=== PATIENT | male | born 1965 | race Caucasian/White ===

== ENCOUNTER 2018-05-02 10:14 | Emergency (ER) | payer MEDICAID ==
[2018-05-02 10:31] VITALS: BP 149/92; PULSE 75; RESP 18; TEMP 98; O2SAT 98
--- NOTE | 2018-05-02 11:17 | C.PDOC ---
History Of Present Illness 53 y/o male with history of Right knee OA, Chronic right knee pain presents to ED requesting medication refill for Gabapentin. Patient denies recent trauma or injury, denies CP, SOB, cough, denies calf pian, swelling of knee, deformity, weakness, sensory or vascular deficits to Right leg. Ambulate to Ed for evaluation with stable gait, not in any apparent distress. Time Seen by Provider: 05/02/18 10:23 Chief Complaint (Nursing): Lower Extremity Problem/Injury History Per: Patient History/Exam Limitations: no limitations Onset/Duration Of Symptoms: Days Current Symptoms Are (Timing): Still Present Past Medical History Reviewed: Historical Data, Nursing Documentation, Vital Signs Vital Signs: Last Vital Signs Temp 98.0 F 05/02/18 10:26 Pulse 75 05/02/18 10:26 Resp 18 05/02/18 10:26 BP 149/92 H 05/02/18 10:26 Pulse Ox 98 05/02/18 11:29 - Medical History PMH: Anxiety, Arthritis, Depression Surgical History: No Surg Hx - [facility] Procedures DETOXIFICATION SERVICES FOR SUBSTANCE ABUSE TREATMENT (12/12/15) GROUP PSYCHOTHERAPY (08/28/15) MEDICATION MANAGEMENT (08/28/15) Family History: States: No Known Family Hx - Social History Hx Alcohol Use: No Hx Substance Use: No - Immunization History Hx Tetanus Toxoid Vaccination: Yes Hx Influenza Vaccination: Yes Hx Pneumococcal Vaccination: Yes Review Of Systems Constitutional: Negative for: Fever, Chills Musculoskeletal: Positive for: Leg Pain. Negative for: Back Pain, Foot Pain Skin: Negative for: Rash, Bruising Neurological: Negative for: Weakness, Numbness Physical Exam - Physical Exam Appears: Well, Non-toxic, No Acute Distress Skin: Normal Color, Warm, Dry, No Rash, No Ecchymosis Extremity: Normal ROM (of Right knee, no neurovascular deficits.), Tenderness ( mild tenderness to anterior aspect Right knee. No edema, no erythema, no warmth. ), No Pedal Edema, No Calf Tenderness, Capillary Refill (<2 seconds), No Deformity, No Swelling Neurological/Psych: Oriented x3, Normal Motor, Normal Sensation, Normal Reflexes ED Course And Treatment O2 Sat by Pulse Oximetry: 98 (RA) Pulse Ox Interpretation: Normal Progress Note: On re-evaluation, pt is afebrile, hemodynamicaly stable. Non- toxic, tolerate Po well in ED. AMbulatory in ED with stable gait. Right knee: FAROM, no neurovascular deficits, no evidence of cellulitis, no calf tenderness. Pt has clinical findings c/w Right knee OA, chr. knee pain request medication Gabapentin refill . Pt advised. ref. to f/u with Ortho in 2 days for re-eval. return if any worseningor new changes. Disposition Counseled Patient/Family Regarding: Diagnosis, Need For Followup, Rx Given - Disposition Referrals: [facility] [Outside] Disposition: HOME/ ROUTINE Disposition Time: 11:14 Condition: STABLE Additional Instructions: Take medication as prescribed Follow up with PMD, Orthopedist in 2-3 days for re-evaluation. return if any new changes. 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 - Scribe Statement The provider has reviewed the documentation as recorded by the Ziaibjuan david Echols All medical record entries made by the Alin were at my direction and personally dictated by me. I have reviewed the chart and agree that the record accurately reflects my personal performance of the history, physical exam, medical decision making, and the department course for this patient. I have also personally directed, reviewed, and agree with the discharge instructions and disposition.
== END 2018-05-02 11:36 | disposition home or self-care (01) ==
LOC: C.ER 10:14
DX: M25.561 Pain in right knee (principal)

== ENCOUNTER 2018-08-02 15:18 | Emergency (ER) | payer MEDICAID, OTHER ==
[2018-08-02 15:57] VITALS: BP 137/75; PULSE 80; RESP 18; TEMP 98.5; O2SAT 97
--- NOTE | 2018-08-02 16:49 | C.PDOC ---
History Of Present Illness 53 y/o male, w/PMhx of ETOH abuse, sciatica, and chronic knee pain, presents to the ER complaining of right sided back pain which has been present for the past 5 days. Patient states that the pain intermittently shoots down his right buttock into his right leg. Patient reports that the pain is worse with sitting for long periods of time. He [facility], but he has been running out of the medication. He also takes Ibuprofen 800 mg every 6 hours with some relief, his last dose was at 7 am today. Denies having bladder/bowel incontinence, saddle anasthesia, weakness, numbness, difficulty walking, fever, and chills. Chief Complaint (Nursing): Lower Extremity Problem/Injury History Per: Patient History/Exam Limitations: no limitations Onset/Duration Of Symptoms: Days Current Symptoms Are (Timing): Still Present Severity: Moderate Past Medical History Reviewed: Historical Data, Nursing Documentation, Vital Signs Vital Signs: Last Vital Signs Temp 98.5 F 08/02/18 15:53 Pulse 80 08/02/18 15:53 Resp 18 08/02/18 15:53 BP 137/75 08/02/18 15:53 Pulse Ox 97 08/02/18 15:53 - Medical History PMH: Anxiety, Arthritis, Depression Denies: Diabetes, Hepatitis, HIV, HTN, Chronic Kidney Disease, Seizures, Sexually Transmitted Disease Surgical History: No Surg Hx - [facility] Procedures DETOXIFICATION SERVICES FOR SUBSTANCE ABUSE TREATMENT (12/12/15) GROUP PSYCHOTHERAPY (08/28/15) MEDICATION MANAGEMENT (08/28/15) Family History: States: No Known Family Hx - Social History Hx Alcohol Use: No Hx Substance Use: No - Immunization History Hx Tetanus Toxoid Vaccination: Yes Hx Influenza Vaccination: Yes (1 week) Hx Pneumococcal Vaccination: No Review Of Systems Except As Marked, All Systems Reviewed And Found Negative. Constitutional: Negative for: Fever, Chills Cardiovascular: Negative for: Chest Pain, Palpitations Respiratory: Negative for: Cough, Shortness of Breath Gastrointestinal: Negative for: Nausea, Vomiting, Abdominal Pain, Diarrhea, Rectal Pain Genitourinary: Negative for: Incontinence Musculoskeletal: Positive for: Back Pain (right-sided back pain), Leg Pain (right leg). Negative for: Neck Pain, Shoulder Pain, Arm Pain, Hand Pain Skin: Negative for: Rash, Lesions, Bruising Neurological: Negative for: Weakness, Numbness, Headache, Dizziness Physical Exam - Physical Exam Appears: Non-toxic, No Acute Distress Skin: Normal Color, Warm, Dry Head: Atraumatic, Normacephalic Eye(s): bilateral: Normal Inspection Nose: Normal Oral Mucosa: Moist Tongue: Normal Appearing Lips: Normal Appearing Neck: Normal, Normal ROM, No Midline Cervical Tenderness, No Paracervical Tenderness, Supple Chest: Symmetrical Cardiovascular: Rhythm Regular Respiratory: Normal Breath Sounds, No Rales, No Rhonchi, No Wheezing Gastrointestinal/Abdominal: No Normal Exam, No Bowel Sounds Back: Normal Inspection, No Vertebral Tenderness, No Decreased ROM, Muscle Spasm (muscle spasm in right lumbar paraspinal region), Paraspinal Tenderness (left lumbar paraspinal), Straight Leg Raising (positive straight leg raise) Extremity: Normal ROM, No Tenderness, No Deformity, No Swelling Neurological/Psych: Oriented x3, Normal Speech, Normal Motor, Normal Sensation Gait: Steady ED Course And Treatment O2 Sat by Pulse Oximetry: 97 (RA) Pulse Ox Interpretation: Normal Medical Decision Making Medical Decision Making: Initial Plan: --Toradol IM --Flexeril PO Pt reassessed, reports decreased pain. Comfortable with discharge home. Impression: sciatica Plan: flexeril short term gabapentin refill ortho f/u PMD f/u within 2 days return if worse Disposition - Disposition Referrals: Kasandra Cuevas MD [Staff Provider] - Disposition: HOME/ ROUTINE Disposition Time: 17:13 Condition: IMPROVED Additional Instructions: Take ibuprofen as needed for pain Take gabapentin as prescribed Take flexeril 10mg every 8 hours as needed for pain Followup with orthopedic within 2 days Return to ED if symptoms worsen Prescriptions: Cyclobenzaprine [Flexeril] 10 mg PO Q8H PRN #15 tab PRN Reason: spasm Gabapentin [Neurontin] 300 mg PO TID #20 cap Instructions: Sciatica Forms: [facility] (Panamanian), Work Excuse - Clinical Impression Clinical Impression: Sciatica - 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 - Scribe Statement The provider has reviewed the documentation as recorded by the Alin Perez Provider Attestation All medical record entries made by the Scribe were at my direction and personally dictated by me. I have reviewed the chart and agree that the record accurately reflects my personal performance of the history, physical exam, medical decision making, and the department course for this patient. I have also personally directed, reviewed, and agree with the discharge instructions and disposition.
== END 2018-08-02 17:42 | disposition home or self-care (01) ==
LOC: C.ER 15:18
DX: M54.31 Sciatica, right side (principal)
CPT/HCPCS: 96372; 99283; J1885